=== PATIENT | female | born 1990 | race Caucasian/White ===

== ENCOUNTER → 2016-06-02 | Outpatient (CLI) | payer BC ==
[2016-06-02 13:41] LABS: ALBUMIN 3.9 g/dL (3.4-5.0); CALCIUM 9.2 mg/dL (8.5-10.1); CHOLESTEROL/HDL RATIO 2.2; CREATININE 0.7 mg/dL (0.6-1.0); GFR 101.1; TOTAL BILIRUBIN 0.9 mg/dL (0.2-1.0); TOTAL PROTEIN 7.8 g/dL (6.4-8.2)
== END | disposition home or self-care (01) ==
LOC: SPEC 13:09
PROVIDERS: ATTEND Registered Nurse
DX: F31.81 Bipolar II disorder (principal)
CPT/HCPCS: 36415; 80053; 80061